=== PATIENT | male | born 1940 | race Two or more races ===

== ENCOUNTER → 2016-10-05 | Outpatient (CLI) | payer MEDICARE, OTHER ==
[~2016-10-05] MED LIST: ASPIRIN-LOW81 MG ORAL; ATORVASTATIN CA10 MG ORAL; DEXILANT60 MG ORAL; METFORMIN HCL500 M1 ORAL; MULTIVITAMINS1 EAC2 ORAL; VITAMIN D250000 UNI1 ORAL
[2016-10-05 09:13] VITALS: BP 149/90
--- NOTE | 2016-10-05 10:44 | General Progress Note ---
Assessment/Plan Problem List: (1) Helicobacter pylori gastritis ICD Codes: B96.81 - Helicobacter pylori gastritis SNOMED: 969768164 (2) BPH (benign prostatic hyperplasia) ICD Codes: N40.0 - BPH (benign prostatic hyperplasia) SNOMED: 917778327 (3) DM (diabetes mellitus) ICD Codes: E11.9 - DM (diabetes mellitus) SNOMED: 56364881 (4) HTN (hypertension) ICD Codes: I10 - HTN (hypertension) SNOMED: 89802779 (5) GERD (gastroesophageal reflux disease) ICD Codes: K21.9 - GERD (gastroesophageal reflux disease) SNOMED: 520289831 Assessment/Plan dexilant QOD rtc prn Subjective ROS Limited/Unobtainable: Yes Allergies: Coded Allergies: No Known Allergies (Unverified , 01/07/15) Subjective c/o GERD Objective Last 24 Hour Vital Signs Date Time Temp Pulse Resp B/P Pulse Ox O2 Delivery O2 Flow Rate FiO2 10/05/16 09:13 97.8 93 18 149/90 General Appearance: alert EENT: normal ENT inspection Neck: supple Cardiovascular: normal rate Respiratory/Chest: lungs clear Abdomen: normal bowel sounds, non tender, soft Extremities: non-tender HARSH ACUNA Oct 05, 2016 10:44
== END | disposition home or self-care (01) ==
LOC: PAN 09:00
DX: B96.81 Helicobacter pylori [H. pylori] as the cause of diseases classified elsewhere (principal); N40.0 Benign prostatic hyperplasia without lower urinary tract symptoms; E11.9 Type 2 diabetes mellitus without complications; I10 Essential (primary) hypertension; K21.9 Gastro-esophageal reflux disease without esophagitis
CPT/HCPCS: 99211

== ENCOUNTER 2018-06-05 13:55 | Outpatient (CLI) | payer MEDICARE, OTHER ==
[2018-06-05 14:02] VITALS: BP 143/77
[2018-06-05] MEDS ORDERED: METFORMIN HCL500 M1 ORAL (14:05)
--- NOTE | 2018-06-06 16:39 | GI Progress Note ---
Assessment/Plan Problems: (1) GERD (gastroesophageal reflux disease) ICD Codes: K21.9 - GERD (gastroesophageal reflux disease) SNOMED: 684107269 (2) HTN (hypertension) ICD Codes: I10 - HTN (hypertension) SNOMED: 73879107 (3) DM (diabetes mellitus) ICD Codes: E11.9 - DM (diabetes mellitus) SNOMED: 37059305 Status: stable Status Narrative Discussed with Dr. Del Toro. Assessment/Plan refill Dexilant RTC x 6 months repeat colonoscopy in 2020 The patient was seen and examined at bedside and all new and available data was reviewed in the patients chart. I agree with the above findings, impression and plan. (Patient seen earlier today. Signature stamp does not reflect patient encounter time.). - Avni Del Toro MD Subjective Subjective GERD, reflux after meals nausea Objective T 97.9 BP 143/77 P 85 96 RA General Appearance: WD/WN, no apparent distress, alert Cardiovascular: normal rate Respiratory/Chest: normal breath sounds, no respiratory distress Abdominal Exam: normal bowel sounds, non tender, soft Extremities: normal range of motion, non-tender Kumar Sepulveda [employer]STRU[employer] Jun 06, 2018 16:39
== END 2018-06-05 14:25 | disposition home or self-care (01) ==
LOC: PAN 13:55
DX: K21.9 Gastro-esophageal reflux disease without esophagitis (principal); I10 Essential (primary) hypertension; E11.9 Type 2 diabetes mellitus without complications; R11.0 Nausea
CPT/HCPCS: 99212

== ENCOUNTER 2019-09-18 09:12 | Outpatient (CLI) | payer MEDICARE, OTHER ==
[2019-09-18 09:31] VITALS: BP 143/78
--- NOTE | 2019-09-18 10:04 | General Progress Note ---
Assessment/Plan Assessment/Plan: Assessment/Plan Problems: (1) GERD (gastroesophageal reflux disease) ICD Codes: K21.9 - GERD (gastroesophageal reflux disease) SNOMED: 329910426 (2) HTN (hypertension) ICD Codes: I10 - HTN (hypertension) SNOMED: 30611575 (3) DM (diabetes mellitus) Assessment/Plan refill Dexilant last E[place] 2010 CT of chest showed esoph wall thickening plan EGD vit B 12 and mag check on procedure day repeat colonoscopy in 2020 Subjective ROS Limited/Unobtainable: Yes Allergies: Coded Allergies: No Known Allergies (Unverified , 01/07/15) Objective Last 24 Hour Vital Signs Date Time Temp Pulse Resp B/P (MAP) Pulse Ox O2 Delivery O2 Flow Rate FiO2 09/18/19 09:31 97.8 81 16 143/78 (99) 99 General Appearance: alert EENT: normal ENT inspection Neck: supple Cardiovascular: normal rate Respiratory/Chest: decreased breath sounds Abdomen: normal bowel sounds, non tender, soft Extremities: non-tender Avni Del Toro MD Sep 18, 2019 10:04
== END 2019-09-18 11:12 | disposition home or self-care (01) ==
LOC: PAN 09:12
DX: K21.9 Gastro-esophageal reflux disease without esophagitis (principal); I10 Essential (primary) hypertension; E11.9 Type 2 diabetes mellitus without complications
CPT/HCPCS: 99212

== ENCOUNTER 2019-09-28 07:26 | Day surgery (SDC) | payer MEDICARE, OTHER ==
[~2019-09-28] VITALS: Ht 170.2 cm; Wt 72.6 kg
[2019-09-28] VITALS (10 sets, daily range): BP systolic 119–152; BP diastolic 71–82
[2019-09-28] MEDS ORDERED: METFORMIN HCL500 M1 ORAL (08:09)
--- NOTE | 2019-09-28 08:43 | Anethesia Preoperative Eval ---
Anesthesia Pre-op PMH/ROS General Date of Evaluation: Sep 28, 2019 Time of Evaluation: 08:41 Anesthesiologist: Lisa Carvajal CRNA ASA Score: ASA 3 Mallampati Score Class I : Soft palate, uvula, fauces, pillars visible Class II: Soft palate, uvula, fauces visible Class III: Soft palate, base of uvula visible Class IV: Only hard plate visible Mallampati Classification: Class II Surgeon: Katey Diagnosis: GERD Surgical Procedure: EGD diagnostic Family History: no anesthesia problems Allergies: Coded Allergies: No Known Allergies (Unverified , 01/07/15) Medications: see eMAR Patient NPO?: Yes NPO Date: Sep 28, 2019 NPO Time: 00:00 Past Medical History Cardiovascular: Reports: HTN, other - hypercholestolemia; Denies: CAD, NV, valve dz, arrhythmia Pulmonary: Denies: asthma, COPD, MATTHEW, other Gastrointestinal/Genitourinary: Reports: GERD, other - History of H. Pylori gastris; BPH; Denies: CRI, ESRD Neurologic/Psychiatric: Denies: dementia, CVA, depression/anxiety, TIA, other Endocrine: Reports: DM; Denies: hypothyroidism, steroids, other HEENT: Reports: SEMINOLE (L), SEMINOLE (R); Denies: cataract (L), cataract (R), glaucoma, other Hematology/Immune: Denies: anemia, DVT, bleeding disorder, other Musculoskeletal/Integumentary: Reports: OA; Denies: RA, DJD, DDD, edema, other PMH Narrative: as noted above PSxH Narrative: EGD, colonoscopy Anesthesia Pre-op Phys. Exam Physician Exam Last Vital Signs Date Time Temp Pulse Resp B/P (MAP) Pulse Ox O2 Delivery O2 Flow Rate FiO2 09/28/19 08:15 Room Air 09/28/19 08:06 97.2 82 18 149/81 97 Constitutional: NAD Neurologic: other - alert & oriented Cardiovascular: RRR Respiratory: CTA Gastrointestinal: S/NT/ND Airway Exam Mallampati Score: Class II MO: full ROM: full Teeth: intact Anesthesia Pre-op A/P Labs Accucheck 138 Studies Pre-op Studies: EKG - NSR Risk Assessment & Plan Assessment: ASA 3, ok to proceed Plan: MAC Status Change Before Surgery: No Pre-Antibiotics Given Within 1 Hr of Incision: No Koempel,Lisa [employer] SANDER Sep 28, 2019 08:43
[2019-09-28] MEDS ORDERED: Propofol 200mg/20ml IV ONE (09:00)
[2019-09-28] MEDS ORDERED: LR 1000ml ONE (09:00)
[2019-09-28] MEDS ORDERED: Lidocaine 1% MPF 10mg/ml 5ml ONE (09:00)
--- NOTE | 2019-09-28 09:06 | Pre-Procedure Note/Attestation ---
Pre-Procedure Note/Attestation Complete Prior to Procedure Planned Procedure: not applicable Procedure Narrative: egd Indications for Procedure Pre-Operative Diagnosis: gastritis Attestation I attest that I discussed the nature of the procedure; its benefits; risks and complications; and alternatives (and the risks and benefits of such alternatives ), prior to the procedure, with the patient (or the patient's legal customer account representative). I attest that, if there was a reasonable possibility of needing a blood transfusion, the patient (or the patient's legal customer account representative) was given the [facility] standardized written summary, pursuant to the [place] Blood Safety Act ([place] Health and Safety Code # 1645, as amended). I attest that I re-evaluated the patient just prior to the surgery and that there has been no change in the patient's H&P, except as documented below: Avni Del Toro MD Sep 28, 2019 09:06
--- NOTE | 2019-09-28 09:06 | Short Stay Surgery H&P ---
History of Present Illness History of Present Illness Chief Complaint see office note HPI Abiodun Suh is a 79 year old male who was admitted on for GERD Patient History Allergies: Coded Allergies: No Known Allergies (Unverified , 01/07/15) Medication History Scheduled Aspirin (Aspirin EC), 81 MG ORAL DAILY, (Reported) Atorvastatin Calcium* (Lipitor*), 10 MG ORAL BEDTIME, (Reported) Metformin Hcl* (Metformin Hcl*), 500 MG ORAL DAILY, (Reported) Discontinued Medications Dexlansoprazole (Dexilant), 60 MG ORAL DAILY, (Reported) Discontinued Reason: Pt stopped taking med Physical Exam Vital Signs Last Vital Signs Date Time Temp Pulse Resp B/P (MAP) Pulse Ox O2 Delivery O2 Flow Rate FiO2 09/28/19 08:15 Room Air 09/28/19 08:06 97.2 82 18 149/81 97 Plan Attestation Are the patient's medical conditions optimized for surgery? Avni Del Toro MD Sep 28, 2019 09:06
--- NOTE | 2019-09-28 09:21 | Endoscopy Procedure Note ---
Endoscopy Procedure Note General Indication for Procedure: ? esoph mass Procedures Performed: EGD Operative Findings/Diagnosis: esophagitis Specimen: yes Pt Tolerated Procedure Well: Yes Estimated Blood Loss: none Anesthesia Anesthesiologist: giselle Anesthesia: MAC Inserted Devices Implant(s) used?: No GI Core Measures 50 yrs or older w/o bx or poly: Not Applicable 10yrs. F/U recommended: Not Applicable Avni Del Toro MD Sep 28, 2019 09:21
--- NOTE | 2019-09-28 09:34 | Immediate Post-Op Evaluation ---
Immediate Post-Op Evalulation Immediate Post-Op Evalulation Procedure: EGD with biopsies Date of Evaluation: Sep 28, 2019 Time of Evaluation: 09:33 IV Fluids: LR 400 ml Blood Pressure Systolic: 126 Blood Pressure Diastolic: 78 Pulse Rate: 81 Respiratory Rate: 18 O2 Sat by Pulse Oximetry: 98 Temperature (Fahrenheit): 97.2 Pain Score (1-10): 0 Nausea: No Vomiting: No Complications none Patient Status: awake, patent Hydration Status: adequate Given Within 1 Hr of Incision: Lisa Griffith CRNA Sep 28, 2019 09:34
--- NOTE | 2019-09-28 12:00 | Procedure Note ---
DATE OF PROCEDURE: 09/28/2019 SURGEON: Avni Del Toro M.D. PROCEDURE: Upper endoscopy with biopsy. ANESTHESIA: Per the ALEAH Gonzalez. INSTRUMENT: Olympus adult flexible upper endoscope. INDICATION: CT evidence of questionable esophageal mass. REASON FOR PROCEDURE: The procedure, risks, benefits, and possible consequences, including hemorrhage, aspiration, perforation and infection, and alternative treatments, were explained to the patient/legal guardian by Dr. Avni Del Toro and the patient/legal guardian understood and accepted these risks. PROCEDURE IN DETAIL: After informed consent was obtained and the patient was adequately sedated, Olympus upper endoscope was advanced from mouth into the second portion of the duodenum and retroflexion was performed in the stomach. The patient had evidence of diffuse gastritis. Random biopsy from antrum was obtained to rule out H. pylori infection. 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 The patient had evidence of minimum distal esophagitis. Biopsy from distal esophagus was obtained for evaluation of the esophagitis. The patient tolerated procedure very well without any complication. SUMMARY OF FINDINGS: 1. Gastritis, status post biopsy. 2. Mildly incompetent . 3. Distal esophagitis, status post biopsy. RECOMMENDATIONS: Follow up biopsy results and treat accordingly. Avni Del Toro M.D. DR: ARIANA JOB#: [id number] CC:
--- NOTE | 2019-09-28 13:44 | 48 Hour Post Anesthesia Eval ---
Post Anesthesia Evaluation Procedure: EGD with biopsies Date of Evaluation: Sep 28, 2019 Time of Evaluation: 13:43 Blood Pressure Systolic: 152 0: 81 Pulse Rate: 73 Respiratory Rate: 18 Temperature (Fahrenheit): 97.7 O2 Sat by Pulse Oximetry: 95 Airway: patent Nausea: No Vomiting: No Pain Intensity: 0 Hydration Status: adequate Cardiopulmonary Status: stable Follow-up Care/Observations: per GI Post-Anesthesia Complications: none Follow-up care needed: N/A Lisa Carvajal CRNA Sep 28, 2019 13:44
== END 2019-09-28 10:15 | disposition home or self-care (01) ==
LOC: GAS 07:26
DX: K29.50 Unspecified chronic gastritis without bleeding (principal); E78.00 Pure hypercholesterolemia, unspecified; I10 Essential (primary) hypertension; E11.9 Type 2 diabetes mellitus without complications; M19.90 Unspecified osteoarthritis, unspecified site; Z79.82 Long term (current) use of aspirin; Z79.84 Long term (current) use of oral hypoglycemic drugs; K21.0 Gastro-esophageal reflux disease with esophagitis
CPT/HCPCS: 36415; 43239; 82607; 83735; 93005; J2704; J7120; 94003; 94150